=== PATIENT | male | born 1985 | race Caucasian/White ===

== ENCOUNTER 2016-09-15 11:40 | Emergency (ER) | payer OTHER ==
[2016-09-15 11:45] VITALS: BP 132/78; PULSE 74; TEMP 98; BMI 25.6
[2016-09-15] MEDS: DIPHTH,PERTUSS(ACELL),TET 0.5 ML DISP.SYRIN IM ONE ×2 (12:34→12:37)
--- NOTE | 2016-09-15 12:38 | PDOC ---
History of Present Illness - General Chief Complaint: Laceration Stated Complaint: LT ARM LACERATION Time Seen by Provider: 09/15/16 12:11 History Source: Patient Exam Limitations: No Limitations - History of Present Illness Initial Comments: 09/15/16 12:34 My chief complaint: laceration forearm at work History of present illness: Patient is a 30-year-old male with no significant medical problems here today after he sustained a laceration to his left volar forearm at work cutting it on a piece of furniture prior to arrrival here. Patient works for [employer]. Patient is not up-to-date with his tetanus. 09/15/16 12:38 09/15/16 12:42 Occurred: reports: just prior to arrival Severity: reports: mild Pain Location: reports: upper extremity (left volar forearm ) Method of Injury: Yes: other (cut on furniture at work today ) Modifying Factors: improves with: None Loss of Consciousness: no loss of consciousness Associated Symptoms (Fall): denies symptoms Past History - Past Medical History Allergies/Adverse Reactions: Allergies Allergy/AdvReac Type Severity Reaction Status Date / Time No Known Allergies Allergy Verified 09/15/16 11:45 Home Medications: Ambulatory Orders NK [No Known Home Medication] 09/15/16 Other medical history: NONE - Surgical History Appendectomy: Yes - Psycho/Social/Smoking Cessation Hx Anxiety: No Suicidal Ideation: No Smoking History: Never smoked Hx Alcohol Use: Yes (SOCIAL) Drug/Substance Use Hx: No Substance Use Type: None Review of Systems - Review of Systems Able to Perform ROS?: Yes Constitutional: No: Symptoms Reported HEENTM: No: Symptoms Reported Respiratory: No: Symptoms reported Cardiac (ROS): No: Symptoms Reported ABD/GI: No: Symptoms Reported : No: Symptoms Reported Musculoskeletal: No: Symptoms Reported Integumentary: Yes: Other (laceration left volar forearm linear superfical ) Neurological: No: Symptoms reported *Physical Exam - Vital Signs Last Vital Signs Temp Pulse Resp BP Pulse Ox 98.0 F 74 20 132/78 99 09/15/16 11:43 09/15/16 11:43 09/15/16 11:43 09/15/16 11:43 09/15/16 11:43 - Physical Exam General Appearance: Yes: Appropriately Dressed Comments:: 09/15/16 12:39 left radial forearm 4 + Extremity: positive: Normal Capillary Refill, Normal Range of Motion (left wrist , left elbow ) Integumentary: positive: Other (left volar forearm linear superfical 3 cm x .25 cm ) Neurologic: positive: Alert, Normal Response, Respond to painful stimul (left forearm ), Responsive. negative: Numbness, Sensory Deficit (left forearm, hand ) Procedures - Consent Consent obtained: From Patient - Laceration/Wound Repair Left Volar Arm Wound Length: 2.6 to 5.0 cm Wound Explored: clean Wound's Depth, Shape: superficial, linear Irrigated w/ Saline: Yes Betadine Prep: Yes Anesthesia: 1% Lidocaine Amount of Anesthetic (ccs): 3 Wound Repaired With: Sutures Suture Size/Type: 4:0 Number of Sutures: 3 (interrupted) Sterile Dressing Applied: Yes (left forearm ) Splint Applied: No Medical Decision Making - Medical Decision Making 09/15/16 12:43 Patient is a 30-year-old male with no significant medical problems here today after he sustained a laceration to his left volar forearm at work cutting it on a piece of furniture prior to arrrival here. Patient works for [employer]. Patient is not up-to-date with his tetanus. Left forearm laceration PLAN: 3 interrupted sutures left volar forearm TDAP 0.5 ML IM now *DC/Admit/Observation/Transfer Diagnosis at time of Disposition: Laceration of forearm, left Qualifiers: Encounter type: initial encounter Qualified Code(s): S51.812A - Laceration without foreign body of left forearm, initial encounter - Discharge Dispostion Disposition: HOME Condition at time of disposition: Stable - Patient Instructions Additional Instructions: Review forearm dry today then may wash tomorrow with antibacterial soap and water pat dry and apply tiny amount of bacitracin twice a day cover with Band- Aid or bandage when out of the home let air out at night Return here in 10-14 days for suture removal or sooner if any redness around wound You may take ibuprofen, Advil, Aleve as needed as directed by senior data quality analyst for pain Today your tetanus, diphtheria and pertussis vaccine was updated Patient voiced understanding of discharge instructions and all questions were answered
== END 2016-09-15 12:47 | disposition home or self-care (01) ==
LOC: JERFT 11:40
PROC: 0HQEXZZ Repair Left Lower Arm Skin, External Approach (ICD-10-PCS; principal; 2016-09-15)
PROC: 3E0234Z Introduction of Serum, Toxoid and Vaccine into Muscle, Percutaneous Approach (ICD-10-PCS; 2016-09-15)
DX: S51.812A Laceration without foreign body of left forearm, initial encounter (principal); W22.03XA Walked into furniture, initial encounter; Y93.89 Activity, other specified; Y92.219 Unspecified school as the place of occurrence of the external cause; Y99.0 Civilian activity done for income or pay
CPT/HCPCS: 90715; 99282-25

== ENCOUNTER 2016-09-29 11:27 | Emergency (ER) | payer OTHER ==
[2016-09-29 11:39] VITALS: BP 127/80; PULSE 64; TEMP 97.7; BMI 25.9
--- NOTE | 2016-09-29 12:55 | PDOC ---
Suture Removal/Wound Check HPI - History of Present Illness Chief Complaint: Suture/Staple Removal(Here) Stated Complaint: SUTURE REMOVAL Time Seen by Provider: 09/29/16 12:31 History Source: Yes: Patient Exam Limitations: Yes: No Limitations Treated at: [facility] ED - Previous ED Treatment Type of procedure performed on last visit: Yes: Laceration Repair Tetanus Immunization: Yes: Up to Date Antibiotics Prescribed: No Past History - Travel Traveled outside of the country in the last 30 days: No Close contact w/someone who was outside of country & ill: No - Past Medical History Allergies/Adverse Reactions: Allergies No Known Allergies Allergy (Verified 09/29/16 11:39) Home Medications: Ambulatory Orders NK [No Known Home Medication] 09/15/16 General: Yes: no pertinent history - Immunization History Tetanus Status: Unknown - Social History Smoking Status: Never smoked Suture Removal/Wound Check PE - Physical Exam Laceration/Wound Check Symptoms: reports: None Current Severity Level: None Location of Laceration/Wound: left: Forearm (poorly approximated suture line , no rednesss/ swelling or evidence of cellulitis ) Pain Radiation: None *Review of Systems - Review of Systems Able to Perform ROS?: Yes Constitutional: Yes: See HPI. No: Symptoms Reported, Chills, Fever HEENTM: No: Symptoms Reported Musculoskeletal: Yes: See HPI. No: Symptoms Reported Integumentary: Yes: See HPI. No: Symptoms Reported, Bruising, Change in Color Neurological: No: Symptoms reported All Other Systems: Reviewed and Negative Medical Decision Making - Medical Decision Making 09/29/16 12:52 sutures removed with no incident/ poorl;y appx, steristrips applied *DC/Admit/Observation/Transfer Diagnosis at time of Disposition: Visit for suture removal - Discharge Dispostion Disposition: HOME Condition at time of disposition: Stable Admit: No - Patient Instructions Printed Discharge Instructions: DI for Suture Removal - Post Discharge Activity Work/School Note: Back to Work
== END 2016-09-29 12:57 | disposition home or self-care (01) ==
LOC: JERFT 11:27
DX: Z48.02 Encounter for removal of sutures (principal)
CPT/HCPCS: 99281-25